=== PATIENT | male | born 1970 | race African-American/Black ===

== ENCOUNTER 2021-12-09 08:25 | Emergency (ER) | payer OTHER ==
[2021-12-09 08:39] VITALS: BP 182/112; PULSE 65; TEMP 97.9; BMI 28.5
[2021-12-09] MEDS ORDERED: CYCLOBENZAPRINE HCL 10 MG TABLET (FP) PO ONE (09:01)
[2021-12-09] MEDS ORDERED: ACETAMINOPHEN 500 MG TABLET (FP) PO ONE (09:01)
[2021-12-09] MEDS ORDERED: LIDOCAINE 5% TOPICAL PATCH TP ONE (09:05)
[2021-12-09] MEDS ORDERED: CYCLOBENZAPRINE HCL 10 MG TABLET (FP) ONE (09:07)
[2021-12-09] MEDS ORDERED: LIDOCAINE 5% TOPICAL PATCH ONE (09:08)
[2021-12-09] MEDS ORDERED: ACETAMINOPHEN 500 MG TABLET (FP) ONE (09:09)
[2021-12-09] MEDS ORDERED: LIDOCAINE PATCH REMOVAL MC SCH (22:00)
== END 2021-12-09 11:22 | disposition home or self-care (01) ==
LOC: JER 08:25
DX: M54.2 Cervicalgia (principal); Y04.8XXA Assault by other bodily force, initial encounter
CPT/HCPCS: 70450-TC; 71046-TC-FY; 99284-25

== ENCOUNTER 2023-10-16 19:11 | Emergency (ER) | payer BC ==
[2023-10-16 19:19] VITALS: BP 153/92; PULSE 85; RESP 18; TEMP 98; BMI 33.9
[2023-10-16] MEDS ORDERED: KETOROLAC TROMETHAMINE 30 MG/1 ML VIAL ONE (21:01)
[2023-10-16] MEDS: KETOROLAC TROMETHAMINE 30 MG/1 ML VIAL IM ONE (21:05)
== END 2023-10-16 22:31 | disposition home or self-care (01) ==
LOC: JERFT 19:11
PROC: 3E0233Z Introduction of Anti-inflammatory into Muscle, Percutaneous Approach (ICD-10-PCS; principal; 2023-10-16)
DX: R05.9 Cough, unspecified (principal); J02.9 Acute pharyngitis, unspecified; R68.83 Chills (without fever); M79.10 Myalgia, unspecified site; R11.0 Nausea; R19.7 Diarrhea, unspecified; R51.9 Headache, unspecified; B34.9 Viral infection, unspecified; Z20.822 Contact with and (suspected) exposure to COVID-19
CPT/HCPCS: 0241U-QW; 71046-TC-FY; 93005; 93010; 99285-25

== ENCOUNTER 2023-11-05 15:53 | Emergency (ER) | payer OTHER, BC ==
[2023-11-05 16:02] VITALS: BP 176/110; PULSE 83; RESP 18; TEMP 98; BMI 28.5
[2023-11-05] MEDS ORDERED: HIV POST EXPOSURE PROPHYLAXIS KIT PO ONE (16:25)
[2023-11-05] MEDS: HIV POST EXPOSURE PROPHYLAXIS KIT PO ONE (16:26)
[2023-11-05] MEDS: DIPHTH,PERTUSS(ACELL),TET 0.5 ML DISP.SYRIN IM ONE (16:43)
[2023-11-05] MEDS ORDERED: DIPHTH,PERTUSS(ACELL),TET 0.5 ML DISP.SYRIN IM ONE (16:43)
[2023-11-05] MEDS: TETANUS AND DIPHTHERIA TOXOID 0.5 ML DISP.SYRIN IM ONE (16:44)
[2023-11-05 16:57] LABS: HEMATOCRIT 43.8 % (35.4-49); HEMOGLOBIN 14.7 GM/dL (11.7-16.9); MCHC 33.5 g/dl (32.0-35.9); MEAN CELL VOLUME 89.3 fl (80-96); MEAN PLT VOLUME 9.1 fl (7.5-11.1); PLATELET COUNT 289 10^3/uL (134-434); RDW 14.1 % (11.9-15.9); WHITE BLOOD COUNT 7.7 K/mm3 (4.0-10.0)
[2023-11-05 17:10] LABS: PH,URINE 6.5 (5.0-8.0); URINE APPEARANCE CLEAR; URINE BILIRUBIN NEGATIVE (NEGATIVE); URINE COLOR YELLOW; URINE GLUCOSE (UA) NEGATIVE (NEGATIVE); URINE KETONE NEGATIVE (NEGATIVE); URINE LEUK ESTERASE NEGATIVE (NEGATIVE); URINE NITRITE NEGATIVE (NEGATIVE); URINE PROTEIN NEGATIVE (NEGATIVE); URINE UROBILINOGEN 0.2 mg/dL (0.2-1.0)
[2023-11-05 17:11] LABS: METHADONE, UR NEGATIVE (NEGATIVE); PHENCYCLIDINE,URINE NEGATIVE (NEGATIVE); URINE BENZODIAZEPINES NEGATIVE (NEGATIVE)
[2023-11-05 17:12] LABS: COCAINE, UR NEGATIVE (NEGATIVE); OPIATES, URI NEGATIVE (NEGATIVE); URINE AMPHETAMINES NEGATIVE (NEGATIVE); URINE BARBITURATES NEGATIVE (NEGATIVE)
[2023-11-05 17:13] LABS: POTASSIUM 4.1 mmol/L (3.5-5.1)
[2023-11-05 17:15] LABS: CALCIUM 9.5 mg/dL (8.5-10.1)
[2023-11-05 17:16] LABS: ALBUMIN 3.5 g/dl (3.4-5.0); BLOOD UREA NITROGEN 12.6 mg/dL (7-18)
[2023-11-05 17:19] LABS: CREATININE 0.9 mg/dL (0.55-1.3)
[2023-11-05 17:21] LABS: BILIRUBIN,TOTAL 0.4 mg/dL (0.2-1); TOT PROT 7.6 g/dl (6.4-8.2)
[2023-11-05 17:35] LABS: ANISOCYTOSIS 0; MACROCYTOSIS 0; PLATELET ESTIMATE NORMAL
[2023-11-05 17:49] LABS: SYPHILIS W/ RPR CONF NON-REACTIVE (NONREACTIVE)
[2023-11-05 18:17] LABS: HIV INTERPRETATION NEGATIVE (NEGATIVE)
== END 2023-11-05 18:02 | disposition home or self-care (01) ==
LOC: JERFT 15:53
PROC: 3E0234Z Introduction of Serum, Toxoid and Vaccine into Muscle, Percutaneous Approach (ICD-10-PCS; principal; 2023-11-05)
DX: S61.031A Puncture wound without foreign body of right thumb without damage to nail, initial encounter (principal); W46.1XXA Contact with contaminated hypodermic needle, initial encounter; Y99.0 Civilian activity done for income or pay
CPT/HCPCS: 36415; 80053; 80307; 81003; 85025; 86704; 86780; 86803; 87340; 87389; 87517; 90715; 99283-25

== ENCOUNTER 2023-12-26 13:30 | Emergency (ER) | payer OTHER, BC ==
[2023-12-26 13:33] VITALS: TEMP 98.6; BMI 32.6
[2023-12-26] MEDS ORDERED: KETOROLAC TROMETHAMINE 30 MG/1 ML VIAL IVPB ONE (14:02)
[2023-12-26] MEDS ORDERED: KETOROLAC TROMETHAMINE 60 MG/2 ML VIAL ONE (14:18)
[2023-12-26 14:26] LABS: BASO % 1.2 % (0-2.0); EOS % 1.4 % (0-4.5); HEMATOCRIT 47.3 % (35.4-49); HEMOGLOBIN 15.7 GM/dL (11.7-16.9); LYMPH % 25.7 % (8-40); MCH 29.9 pg (25.7-33.7); MCHC 33.1 g/dl (32.0-35.9); MEAN CELL VOLUME 90.4 fl (80-96); MEAN PLT VOLUME 8.5 fl (7.5-11.1); MONO % 8.2 % (3.8-10.2); NEUT % 63.5 % (42.8-82.8); PLATELET COUNT 302 10^3/uL (134-434); RBC 5.23 M/mm3 (4.00-5.60); RDW 14.5 % (11.9-15.9); WHITE BLOOD COUNT 8.3 K/mm3 (4.0-10.0)
[2023-12-26] MEDS ORDERED: KETOROLAC TROMETHAMINE 30 MG/1 ML VIAL ONE (14:32)
[2023-12-26] MEDS: KETOROLAC TROMETHAMINE 30 MG/1 ML VIAL IVPB ONE (14:44)
[2023-12-26] MEDS: CEFAZOLIN SODIUM 2 GM in DEXTROSE 5%-WATER 100 ML IVPB ONE (14:45)
[2023-12-26 14:59] LABS: ERYTHROCYTE SEDIMENTATION RATE 19 mm/hr (0-20)
[2023-12-26 15:00] LABS: POTASSIUM 4.3 mmol/L (3.5-5.1)
[2023-12-26 15:02] LABS: CALCIUM 9.7 mg/dL (8.5-10.1)
[2023-12-26 15:03] LABS: ALBUMIN 3.8 g/dl (3.4-5.0); BLOOD UREA NITROGEN 13.1 mg/dL (7-18)
[2023-12-26 15:08] LABS: BILIRUBIN,TOTAL 0.6 mg/dL (0.2-1)
[2023-12-26 15:17] LABS: CREATININE 0.9 mg/dL (0.55-1.3)
[2023-12-26 18:28] VITALS: BP 147/97; PULSE 67; RESP 20
== END 2023-12-26 18:27 | disposition home or self-care (01) ==
LOC: JERFT 13:30
PROC: 3E033GC Introduction of Other Therapeutic Substance into Peripheral Vein, Percutaneous Approach (ICD-10-PCS; principal; 2023-12-26)
PROC: 3E0303Z Introduction of Anti-inflammatory into Peripheral Vein, Open Approach (ICD-10-PCS; 2023-12-26)
DX: M25.561 Pain in right knee (principal); M10.9 Gout, unspecified
CPT/HCPCS: 36415; 73562-TC-RT-FY; 80053; 85025; 85651; 86140; 99284-25

== ENCOUNTER 2024-01-02 17:36 | Emergency (ER) | payer OTHER, BC ==
[2024-01-02 17:48] VITALS: BP 174/114; PULSE 96; RESP 18; TEMP 98.1; BMI 34.4
[2024-01-02] MEDS ORDERED: KETOROLAC TROMETHAMINE 30 MG/1 ML VIAL ONE (18:27)
[2024-01-02] MEDS: KETOROLAC TROMETHAMINE 30 MG/1 ML VIAL IM ONE (18:32)
== END 2024-01-02 19:17 | disposition home or self-care (01) ==
LOC: JER 17:36 → JERFT 17:36
PROC: 3E023GC Introduction of Other Therapeutic Substance into Muscle, Percutaneous Approach (ICD-10-PCS; principal; 2024-01-02)
DX: S20.211A Contusion of right front wall of thorax, initial encounter (principal); W22.8XXA Striking against or struck by other objects, initial encounter; Y99.0 Civilian activity done for income or pay
CPT/HCPCS: 71101-TC-RT-FY; 99284-25